=== PATIENT | male | born 1995 | race African-American/Black ===

== ENCOUNTER 2022-05-09 14:13 | Emergency (ER) | payer OTHER ==
[~2022-05-09] VITALS: Ht 172.7 cm; Wt 106.1 kg
[2022-05-09 14:14] VITALS: BP 119/78
[2022-05-09] MEDS ORDERED: IBUPROFEN 800 MG TAB PO ONE (15:15)
[2022-05-09] MEDS ORDERED: LIDOCAINE W/EPINEPHRINE 1% 20ML VIAL SC ONE (15:15)
[2022-05-09] MEDS ORDERED: SODIUM BICARBONATE 4.2% INJ 10ML SYRINGE XX ONE (15:15)
[2022-05-09] MEDS ORDERED: BOOSTRIX/ADACEL VACCINE (DIPHTH/PERTUSS/ACELL/TETANUS) 0.5ML SYR IM ONE (15:15)
[2022-05-09] MEDS ORDERED: NEOSPORIN OINT 0.9 GM PKT TOP ONE (16:10)
== END 2022-05-09 16:17 | disposition home or self-care (01) ==
LOC: M ED 14:13
DX: S61.511A Laceration without foreign body of right wrist, initial encounter (principal); W26.8XXA Contact with other sharp object(s), not elsewhere classified, initial encounter; Y92.512 Supermarket, store or market as the place of occurrence of the external cause; Y93.89 Activity, other specified; Y99.0 Civilian activity done for income or pay

== ENCOUNTER → 2022-07-07 | Outpatient (CLI) | payer OTHER | LOC: M PLAIMG 10:01 | PROVIDERS: ATTEND Internal Medicine | DX: M67.814 Other specified disorders of tendon, left shoulder (principal) ==

== ENCOUNTER 2022-12-28 04:35 | Emergency (ER) | payer OTHER ==
[~2022-12-28] VITALS: Ht 182.9 cm; Wt 102.3 kg
[2022-12-28] MEDS ORDERED: MECLIZINE 25 MG TABLET PO ONE (08:10)
[2022-12-28] MEDS ORDERED: NS 1,000 ML IV ONE (09:00)
[2022-12-28] MEDS ORDERED: MECL1TAB31 PO (10:58)
[2022-12-28] MEDS ORDERED: ONDA4TAB6 PO (10:58)
[2022-12-28 11:08] VITALS: BP 123/83
== END 2022-12-28 11:12 | disposition home or self-care (01) ==
LOC: M ED 04:35
DX: H81.13 Benign paroxysmal vertigo, bilateral (principal); H55.09 Other forms of nystagmus; Z98.890 Other specified postprocedural states

== ENCOUNTER 2025-01-28 12:36 | Emergency (ER) | payer OTHER ==
[~2025-01-28] VITALS: Ht 182.9 cm; Wt 110.2 kg
[~2025-01-28 12:36] MED LIST: MECL-209 PO; ONDA-282 PO
[2025-01-28 12:42] VITALS: BP 129/81; TEMP 97.1; O2SAT 96
[2025-01-28] MEDS: DERMABOND TOPICAL SKIN ADHESIVE TOP ONE (16:45)
== END 2025-01-28 16:55 | disposition home or self-care (01) ==
LOC: M ED 12:36
DX: S61.012A Laceration without foreign body of left thumb without damage to nail, initial encounter (principal); W26.9XXA Contact with unspecified sharp object(s), initial encounter; Y92.009 Unspecified place in unspecified non-institutional (private) residence as the place of occurrence of the external cause; Y93.89 Activity, other specified; Y99.9 Unspecified external cause status

== ENCOUNTER → 2025-07-05 | Outpatient (REF) | payer OTHER ==
[2025-07-05 12:17] LABS: SEMEN APPEARANCE OPAQUE (OPAQUE); SEMEN VISCOSITY LIQUID (LIQUID); SEMEN VOLUME 1.5 ml (2.0-5.0)
[2025-07-05 12:18] LABS: SPERM CONCENTRATION 44.3 M/ml (>=15.0); TOTAL PROGRESSIVE SPERM 10.1 M/Ejac.; WBC CONCENTRATION <=1 M/ml (<=1 M/ml)
== END ==
LOC: M LAB REF 12:10
PROVIDERS: ATTEND Obstetrics & Gynecology
DX: N46.9 Male infertility, unspecified (principal)

== ENCOUNTER → 2025-07-10 | Outpatient (REF) | payer OTHER ==
[2025-07-10 13:23] LABS: SEMEN APPEARANCE OPAQUE (OPAQUE); SEMEN VISCOSITY LIQUID (LIQUID); SEMEN VOLUME 3.6 ml (2.0-5.0); WBC CONCENTRATION >1 M/ml (<=1 M/ml)
[2025-07-10 13:24] LABS: SPERM CONCENTRATION 9.0 M/ml (>=15.0); TOTAL PROGRESSIVE SPERM 5.2 M/Ejac.
== END ==
LOC: M SFHCWAGY 13:14
PROVIDERS: ATTEND Obstetrics & Gynecology
DX: Z31.41 Encounter for fertility testing (principal)